=== PATIENT | female | born 1980 | race African-American/Black ===

== ENCOUNTER 2018-03-04 11:49 | Inpatient (IN) ==
[2018-03-04] MEDS ORDERED: hydrALAZINE 20 MG/1 ML VIAL IV ONE ×2 (12:17→12:46)
[2018-03-04] MEDS ORDERED: SODIUM CHLORIDE 0.9% 1,000 ML IV SCH (12:30)
[2018-03-04 12:33] LABS: Apearance,Urine Slightly Hazy (Clear); Bacteria,Urine Many /HPF (Few); Bilirubin,Urine Negative (Negative); Blood, Urine Negative (Negative); Glucose,Urine (UA) Negative (Negative); Ketones,Urine Negative (Negative); Mucus,Urine Moderate /LPF (Occasional); Nitrite,Urine Negative (Negative); Protein,Urine 100 MG/DL; RBC,Urine 2 /HPF (0-4); Squamous Epithelial Cell,Urine Occasional /HPF (0-10); Urine Color Yellow (Yellow); Urine Specific Gravity 1.016 (1.001-1.035); WBC,Urine 3 /HPF (0-6)
[2018-03-04 12:34] LABS: Basophils % 0.3 % (0.0-0.8); Eosinophils # 0.2 10*3/uL (0.0-0.87); Hematocrit 35.3 VOL% (35.7-47.0); Hemoglobin 11.9 GM/DL (12.0-16.0); Immature Granulocytes % 0.4 %; Immature Granulocytes Absolute 0.03 #; Lymphocytes # 2.1 10*3/uL (1.4-4.0); Lymphocytes % 27.8 % (21.3-54.2); Mean Corpuscular HGB Conc 33.7 GM/DL (32-36); Mean Corpuscular Hemoglobin 34 PG (27-34); Mean Corpuscular Volume 100.6 FL (87-102); Mean Platelet Volume 10.7 FL (9.6-12.0); Monocytes # 0.9 10*3/uL (0.11-0.8); Monocytes % 11.1 % (1.7-12.7); Neutrophils # 4.5 10*3/uL (1.4-7.4); Neutrophils % 58.4 % (38.7-73.9); Platelet Count 251 T/CUMM (130-400); Red Blood Count 3.51 MC/CUMM (3.8-5.5); Red Cell Distribution Width 12.5 % (9.3-17.3); White Blood Count 7.7 T/CUMM (4-12)
[2018-03-04 12:46] LABS: INR 0.9; PT Patient Result 9.3 SECS; Partial Thromboplastin Time 28.7 SECS (0-40)
[2018-03-04 12:53] LABS: Albumin 2.7 G/DL (3.4-5.0); Bilirubin,Total 0.8 MG/DL (0.2-1.0); Calcium 8.7 MG/DL (8.5-10.1); Osmolality,Calculated 275.4 MOS/KG (273-304); Potassium 3.9 MMOL/L (3.5-5.1); Total Protein 6.5 G/DL (6.4-8.3); Uric Acid 4.1 MG/DL (2.6-6.0)
[2018-03-04] MEDS ORDERED: CITRIC ACID/SODIUM CITRATE 30 ML UDCUP PO ONE (13:10)
[2018-03-04] MEDS ORDERED: MAGNESIUM SULF RIDER 100 ML IV ONE (13:10)
[2018-03-04] MEDS: LACTATED RINGERS 1,000 ML IV SCH (13:23)
[2018-03-04] MEDS ORDERED: MAGNESIUM SULF DRIP 40 GM/1,000 ML ML IV SCH (13:30)
[2018-03-04] MEDS ORDERED: ACETAMINOPHEN 500 MG TABLET PO ONE (15:20)
[2018-03-04] MEDS ORDERED: OXYTOCIN 10 UNIT/ML VIAL IM ONE (15:49)
[2018-03-04] MEDS ORDERED: OXYTOCIN/LR 30 UNIT/1,000 ML BAG IV ONE (15:49)
[2018-03-04] MEDS ORDERED: FAMOTIDINE 20 MG/2 ML VIAL IV ONE (15:50)
[2018-03-04] MEDS ORDERED: ceFAZolin 3,000 MG in SYRINGE 1 EACH IV ONE (16:00)
[2018-03-04] MEDS ORDERED: ONDANSETRON 4 MG/2 ML VIAL ONE (16:20)
[2018-03-04] MEDS ORDERED: PHENYLEPHRINE 1 MG/10 ML SYRINGE IV ONE (16:20)
[2018-03-04] MEDS ORDERED: BUPIVACAINE SPINAL 0.75% 2 ML AMP SPINAL ONE (16:20)
[2018-03-04] MEDS ORDERED: MIDAZOLAM 2 MG/2 ML VIAL ONE (17:35)
[2018-03-04] MEDS ORDERED: MORPHINE 10 MG/10 ML VIAL ONE (17:36)
[2018-03-04] MEDS ORDERED: FUROSEMIDE 40 MG/4 ML VIAL ONE (17:37)
[2018-03-04 17:39] LABS: Cord Arterial Blood HCO3 22.7 MMOL/L
[2018-03-04 17:46] LABS: Cord Venous Blood PCO2 41.3 MMHG; Cord Venous Blood PO2 23.2
[2018-03-04] MEDS ORDERED: NALOXONE 0.4 MG/ML VIAL IV PRN (17:46)
[2018-03-04] MEDS ORDERED: HYDROmorphone PCA 30 MG/30 ML SYRINGE IV SCH (18:00)
[2018-03-04] MEDS: hydrALAZINE 20 MG/1 ML VIAL IV SCH ×2 (18:20→18:32)
[2018-03-04] MEDS ORDERED: OXYTOCIN/LR 20 UNIT/1,000 ML BAG IV ONE ×2 (19:36→20:21)
[2018-03-04] MEDS ORDERED: SIMETHICONE CHEW 80 MG TABLET PO PRN (20:21)
[2018-03-04] MEDS ORDERED: ONDANSETRON 4 MG/2 ML VIAL IV PRN (20:21)
[2018-03-04] MEDS ORDERED: RHO(D) IMMUNE GLOBULIN 300 MCG SYRINGE IM ONE (20:21)
[2018-03-04] MEDS ORDERED: ACETAMINOPHEN 325 MG TABLET PO PRN (20:21)
[2018-03-04] MEDS ORDERED: PROMETHAZINE 25 MG/1 ML VIAL IM PRN (23:39)
[2018-03-05] MEDS: DOCUSATE SODIUM 100 MG CAPSULE PO SCH ×3 (00:55→20:14)
[2018-03-05] MEDS: LACTATED RINGERS 1,000 ML IV SCH ×2 (00:56→10:02)
[2018-03-05] MEDS: ceFAZolin 1,000 MG in SYRINGE 1 EACH IV SCH ×2 (01:24→09:55)
[2018-03-05 02:13] LABS: Basophils % 0.1 % (0.0-0.8); Hematocrit 38.4 VOL% (35.7-47.0); Hemoglobin 12.5 GM/DL (12.0-16.0); Immature Granulocytes % 0.9 %; Immature Granulocytes Absolute 0.14 #; Lymphocytes # 0.8 10*3/uL (1.4-4.0); Lymphocytes % 4.8 % (21.3-54.2); Mean Corpuscular HGB Conc 32.6 GM/DL (32-36); Mean Corpuscular Hemoglobin 33 PG (27-34); Mean Corpuscular Volume 101.9 FL (87-102); Mean Platelet Volume 10.6 FL (9.6-12.0); Monocytes # 0.9 10*3/uL (0.11-0.8); Monocytes % 5.6 % (1.7-12.7); Neutrophils # 14.1 10*3/uL (1.4-7.4); Neutrophils % 88.6 % (38.7-73.9); Platelet Count 267 T/CUMM (130-400); Red Blood Count 3.77 MC/CUMM (3.8-5.5); Red Cell Distribution Width 12.8 % (9.3-17.3); White Blood Count 15.9 T/CUMM (4-12)
[2018-03-05 03:17] LABS: Lymphocytes 7 % (20-55); Platelet Estimate Normal; Segmented Neutrophils 91 % (50-85); Total Cells Counted 100
[2018-03-05 03:18] LABS: Polychromasia Few
[2018-03-05] MEDS: FUROSEMIDE 40 MG/4 ML VIAL IV SCH ×2 (09:57→18:18)
[2018-03-05] MEDS: IBUPROFEN 800 MG TABLET PO PRN (09:59)
[2018-03-05] MEDS: MULTIVITAMIN (PRENATAL) TABLET PO SCH (10:00)
[2018-03-05] MEDS: MAGNESIUM HYDROXIDE SUSP 30 ML UDCUP PO PRN (20:14)
[2018-03-05] MEDS: METOCLOPRAMIDE 10 MG TABLET PO SCH (20:15)
[2018-03-06] MEDS: METOCLOPRAMIDE 10 MG TABLET PO SCH ×3 (04:03→20:35)
[2018-03-06] MEDS: IBUPROFEN 800 MG TABLET PO PRN (08:17)
[2018-03-06] MEDS: MULTIVITAMIN (PRENATAL) TABLET PO SCH (08:23)
[2018-03-06] MEDS: DOCUSATE SODIUM 100 MG CAPSULE PO SCH ×2 (08:23→20:35)
[2018-03-06] MEDS: FUROSEMIDE 40 MG/4 ML VIAL IV SCH (08:27)
[2018-03-06] MEDS: MAGNESIUM HYDROXIDE SUSP 30 ML UDCUP PO PRN (20:34)
[2018-03-07] MEDS: MULTIVITAMIN (PRENATAL) TABLET PO SCH (08:24)
[2018-03-07] MEDS: DOCUSATE SODIUM 100 MG CAPSULE PO SCH (08:24)
[2018-03-07 09:29] VITALS: BP 145/95
[2018-03-07] MEDS: IBUPROFEN 800 MG TABLET PO PRN (09:56)
== END 2018-03-07 12:09 | disposition home or self-care (01) | DRG 788 ==
LOC: N.LDOUT 11:49 → N.LD 11:50 → N.OB 03-05 12:38
PROVIDERS: ADMIT Obstetrics & Gynecology; ATTEND Obstetrics & Gynecology
PROC: LDCSECT (ICD-10-PCS; 2018-03-04 16:30)